=== PATIENT | female | born 1950 | race Two or more races ===

== ENCOUNTER 2020-09-25 13:02 | Outpatient (CLI) | payer OTHER | END 2020-09-25 13:06 | disposition home or self-care (01) | LOC: TOM 13:02 | PROVIDERS: ATTEND Urology | DX: Z12.31 Encounter for screening mammogram for malignant neoplasm of breast (principal); Z87.898 Personal history of other specified conditions; N20.0 Calculus of kidney ==

== ENCOUNTER 2020-10-10 13:14 | Outpatient (CLI) | payer OTHER | END 2020-10-10 13:20 | disposition home or self-care (01) | LOC: RAD 13:14 | PROVIDERS: ATTEND Urology | DX: N20.0 Calculus of kidney (principal) ==